=== PATIENT | male | born 1975 | race Two or more races ===

== ENCOUNTER 2016-09-29 20:49 | Emergency (ER) | payer MEDICAID ==
[~2016-09-29] VITALS: Ht 170.2 cm; Wt 117.9 kg
[2016-09-29 21:47] LABS: Basophils # (auto) 0 uL; Basophils % (auto) 0.3 % (0.0-2.0); CONDITION Y; Eosinophils # (auto) 0 uL; Eosinophils % (auto) 0.8 % (0.0-7.0); Hematocrit 43.9 % (41.0-53.0); Hemoglobin 15.1 g/dL (13.5-17.5); Lymphocytes # (auto) 1.1 uL; Lymphocytes % (auto) 22.5 % (10.0-50.0); Mean Corpuscular Hemoglobin 31.3 pg (28.0-32.0); Mean Corpuscular Hgb Conc. 34.3 g/dL (32.0-36.0); Mean Corpuscular Volume 91.1 fL (80.0-100.0); Mean Platelet Volume 9.2 fL (7.4-10.4); Monocytes # (auto) 0.4 uL; Monocytes % (auto) 7.6 % (0.0-12.0); Neutrophils # (auto) 3.5 uL; Neutrophils % (auto) 68.8 % (37.0-80.0); Platelet Count (auto) 224 10^3/uL (140-450); Red Cell Distribution Width 13.7 % (11.6-16.0)
[2016-09-29 22:06] LABS: INR 0.95 (0.9-1.15); Partial Thromboplastin Time 25.5 sec (22.64-33.71); Prothrombin Time 10.3 sec (9.37-12.3)
[2016-09-29 22:19] LABS: Alkaline Phosphatase 64 U/L (45-117); Anion Gap 6 (5-15); Aspartate Aminotransferase 17 U/L (15-37); BUN/Creatinine Ratio 16.2; Bilirubin, Total 0.3 mg/dL (0.2-1.0); Blood Urea Nitrogen 16 mg/dL (7-18); Calcium 8.7 mg/dL (8.5-10.1); Carbon Dioxide 28 mmol/L (21-32); Chloride 107 mmol/L (98-107); GFR African American 108 mL/min; GFR Non-African American 89 mL/min; Glucose 105 mg/dL (74-106); Potassium 4.4 mmol/L (3.5-5.1); Sodium 141 mmol/L (136-145); Total Protein 7.5 g/dL (6.4-8.2)
[2016-09-30] MEDS ORDERED: NALBUPHINE HCL 10 MG/1ml INJECTION IV ONE
[2016-09-30 03:06] VITALS: BP 140/74
== END 2016-09-30 03:15 | disposition home or self-care (01) ==
LOC: EDBD 20:49 → ER 20:53
DX: S43.422A Sprain of left rotator cuff capsule, initial encounter (principal); S16.1XXA Strain of muscle, fascia and tendon at neck level, initial encounter; M54.2 Cervicalgia; R07.89 Other chest pain; X58.XXXA Exposure to other specified factors, initial encounter; Y93.89 Activity, other specified; Y92.89 Other specified places as the place of occurrence of the external cause; Y99.8 Other external cause status
CPT/HCPCS: 36415; 71020; 73030; 80053; 84484; 85025; 85610; 85730; 93005; 96374; 99285; J2300